=== PATIENT | female | born 1975 | race Caucasian/White ===

== ENCOUNTER 2018-01-23 15:07 | Emergency (ER) | payer BC ==
[~2018-01-23] VITALS: Ht 175.3 cm; Wt 90.0 kg
[2018-01-23 15:36] VITALS: Ht 175.3 cm; Wt 90.0 kg
[2018-01-23] MEDS ORDERED: ORTHO TRI-7 DAYSX 3 (15:39)
[2018-01-23 16:11] LABS: BASOPHILS 0.1 % (0-2); EOSINOPHILS 1.2 % (0-7); HEMATOCRIT 39.7 % (36.0-48.0); HEMOGLOBIN 13.5 g/dL (12-16); IMMATURE GRANULOCYTES 0.1 % (0-5); LYMPHOCYTES 22.6 % (15-50); MCH 28.7 pg (26.0-34.0); MCV 84.5 fL (80.0-100.0); MEAN PLATELET VOLUME 10.1 fL (7.4-10.4); PLATELET COUNT 246 10x3/uL (130-400); RDW 13.8 % (11.5-14.5); WBC 9.4 10x3/uL (4.8-10.8)
[2018-01-23 16:26] LABS: ALBUMIN 3.4 g/dL (3.4-5.0); ALKALINE PHOSPHATASE 84 U/L (46-116); ALT (SGPT) 15 U/L (10-68); BILIRUBIN - TOTAL 0.17 mg/dL (0.2-1.3); CALC OSMOLALITY 275 mosm/kg (275-300); CALCIUM 8.9 mg/dL (8.5-10.1); CARBON DIOXIDE 24.1 mmol/L (21.0-32.0); CHLORIDE - SERUM 103 mmol/L (98-107); CREATININE - SERUM 0.8 mg/dL (0.6-1.3); GLUCOSE 138 mg/dL (74-106); POTASSIUM - SERUM 3.7 mmol/L (3.5-5.1); PROTEIN - SERUM 8.3 g/dL (6.4-8.2); SODIUM 138 mmol/L (136-145); UREA NITROGEN 8 mg/dL (7-18); eGFR NON AFRICAN AMERICAN 83 mL/min (90-120)
[2018-01-23 16:35] LABS: CKMB 0.1 U/L (0.0-3.6); TROPONIN-I < 0.017 ng/mL (0.000-0.060)
[2018-01-23] MEDS ORDERED: TORADOL10 MG PO (19:07)
[2018-01-23 21:06] VITALS: BP 108/66
== END 2018-01-23 21:06 | disposition home or self-care (01) ==
LOC: D.ER 15:07
PROVIDERS: Family Medicine
DX: R07.81 Pleurodynia (principal); R06.02 Shortness of breath; R09.89 Other specified symptoms and signs involving the circulatory and respiratory systems; R06.2 Wheezing; F17.200 Nicotine dependence, unspecified, uncomplicated

== ENCOUNTER → 2018-11-24 15:01 | Outpatient (CLI) | payer BC ==
[2018-01-23 15:36] VITALS: BMI 29.3
[~2018-11-24 15:01] MED LIST: ORTHO TRI-7 DAYSX 3; TORADOL10 MG PO
[2018-11-24 15:52] LABS: BASOPHILS 0.3 % (0-2); EOSINOPHILS 2.4 % (0-7); HEMATOCRIT 35.7 % (36.0-48.0); HEMOGLOBIN 11.9 g/dL (12-16); LYMPHOCYTES 30.3 % (15-50); MCH 28.2 pg (26.0-34.0); MCHC 33.3 g/dL (31.0-37.0); MCV 84.6 fL (80.0-100.0); MEAN PLATELET VOLUME 9.8 fL (7.4-10.4); MONOCYTES 4.4 % (2-11); NEUTROPHILS 62.6 % (40-80); PLATELET COUNT 295 10x3/uL (130-400); RBC 4.22 10x6/uL (4.00-5.40); WBC 7.8 10x3/uL (4.8-10.8)
[2018-11-24 16:17] LABS: ALBUMIN 3.3 g/dL (3.4-5.0); ANION GAP 11.3 mmol/L (8-16); BILIRUBIN - TOTAL 0.22 mg/dL (0.2-1.3); C-REACTIVE PROTEIN 2.7 mg/dL (0.0-0.9); CALCIUM 8.6 mg/dL (8.5-10.1); CARBON DIOXIDE 27.4 mmol/L (21.0-32.0); CREATININE - SERUM 1.1 mg/dL (0.6-1.3); POTASSIUM - SERUM 3.7 mmol/L (3.5-5.1); PROTEIN - SERUM 8.1 g/dL (6.4-8.2); THYROID STIMULATING HORMONE 1.05 uIU/mL (0.36-3.74); URIC ACID 5.1 mg/dL (2.6-7.2)
[2018-11-24 16:54] LABS: ERYTHROCYTE SEDIMENTATION RATE 31 mm/hr (0-20)
[2018-11-25 15:14] LABS: ANA REFLEX - DIRECT Negative (Negative)
[2018-11-26 03:08] LABS: RMSF IGM 0.79 index (0.00-0.89)
[2018-11-27 12:16] LABS: F. TULARENSIS - IGG Negative (Negative); F. TULARENSIS - IGM Negative (Negative)
[2018-11-28 09:12] LABS: A. PHAGOCYTOPHILIUM PCR Negative (Negative)
== END | disposition home or self-care (01) ==
LOC: D.LABREF 15:01
PROVIDERS: ATTEND Family Medicine
DX: M35.9 Systemic involvement of connective tissue, unspecified (principal)

== ENCOUNTER → 2020-05-02 12:37 | Outpatient (CLI) | payer BC ==
[2018-01-23 15:36] VITALS: BMI 29.3
== END | disposition home or self-care (01) ==
LOC: D.MRI 12:37
PROVIDERS: ATTEND Orthopaedic Surgery
DX: S83.231A Complex tear of medial meniscus, current injury, right knee, initial encounter (principal)

== ENCOUNTER → 2020-11-08 08:05 | Outpatient (CLI) | payer BC ==
[2018-01-23 15:36] VITALS: BMI 29.3
[2020-11-08 08:54] LABS: T4 THYROXIN - FREE 1.16 ng/dL (0.76-1.46); THYROID STIMULATING HORMONE 0.97 uIU/mL (0.36-3.74)
[2020-11-09 08:13] LABS: THYROGLOBULIN ANTIBODY <1.0 IU/mL (0.0-0.9); THYROID PEROXIDASE ABS <9 IU/mL (0-34)
== END | disposition home or self-care (01) ==
LOC: D.LAB 08:05
PROVIDERS: ATTEND Nurse Practitioner
DX: E04.1 Nontoxic single thyroid nodule (principal)